=== PATIENT | female | born 1960 | race Caucasian/White ===

== ENCOUNTER → 2020-07-06 | Outpatient (CLI) | payer BC ==
[~2020-07-06] MED LIST: D31000TA2 PO; FISH1000 PO; FOLI1TAB11 PO; METH2.5T48 PO; PAXI10TA12 PO; PRED5PAK PO; VITA-243 PO; [UNRECOGNIZED DRUG - CODE] PO
== END ==
LOC: M LABSMTC 11:02
PROVIDERS: ATTEND Anesthesiology
DX: Z01.812 Encounter for preprocedural laboratory examination (principal); Z20.828 Contact with and (suspected) exposure to other viral communicable diseases
CPT/HCPCS: C9803; U0003

== ENCOUNTER 2020-07-11 12:58 | Day surgery (SDC) | payer OTHER ==
[~2020-07-11] VITALS: Ht 160 cm; Wt 66.6 kg
[~2020-07-11 12:58] MED LIST changes: +NS 1,000 ML IV ONE
[2020-07-11] MEDS ORDERED: propofoL 200 MG/20 ML VIAL As Ordered ONE (15:15)
[2020-07-11] MEDS ORDERED: LIDOCAINE 2% 100MG/5ML SDV (FOR ANES.) As Ordered ONE (15:16)
[2020-07-11 16:35] VITALS: BP 127/62
--- NOTE | 2020-07-12 11:39 | ROOR ---
Patient Name: Carson Birmingham Procedure Date: 07/11/2020 3:42 PM Date of : 1960 Age: 59 Room: [facility] Gender: Female Note Status: Finalized Procedure: Colonoscopy Indications: Screening for colorectal malignant neoplasm Providers: Darrick BRAN MD Referring MD: Daphnie Irene MD Requesting Provider: Medicines: Monitored Anesthesia Care Complications: No immediate complications. Procedure: Pre-Anesthesia Assessment: - The heart rate, respiratory rate, oxygen saturations, blood pressure, adequacy of pulmonary ventilation, and response to care were monitored throughout the procedure. The Colonoscope was introduced through the anus and advanced to the cecum, identified by appendiceal orifice and ileocecal valve. The colonoscopy was performed without difficulty. The patient tolerated the procedure well. The quality of the bowel preparation was good. Findings: The perianal and digital rectal examinations were normal. A 3 mm polyp was found in the appendiceal orifice. The polyp was sessile. The polyp was removed with a cold snare. Resection and retrieval were complete. A localized area of granular mucosa was found at the appendiceal orifice. The polyp was removed with a piecemeal technique using a cold snare. Resection and retrieval were complete. Internal hemorrhoids were found during retroflexion. The hemorrhoids were medium-sized. The exam was otherwise without abnormality on direct and retroflexion views. Impression: - One 3 mm polyp at the appendiceal orifice, removed with a cold snare. Resected and retrieved. - 8-10 mm granular mucosa at the appendiceal orifice. This was resected piecemeal with cold snare. Tissue retrieved. - Internal hemorrhoids. - The examination was otherwise normal on direct and retroflexion views. Recommendation: - Await pathology results. - Telephone endoscopist for pathology results in 2 weeks - If the pathology report indicates hyperplastic polyp, then repeat colonoscopy for surveillance in 3 years. - If the pathology report reveals adenomatous or serrated tissue, then repeat the colonoscopy for surveillance after piecemeal polypectomy in 1 year. Darrick Bran MD Darrick BRAN MD 07/11/2020 4:13:10 PM Electronically signed by Darrick BRAN MD Number of Addenda: 0 Note Initiated On: 07/11/2020 3:42 PM Estimated Blood Loss: Estimated blood loss: none.
== END 2020-07-11 16:38 | disposition home or self-care (01) ==
LOC: M OPP 12:58
PROVIDERS: ATTEND Internal Medicine Gastroenterology
DX: Z12.11 Encounter for screening for malignant neoplasm of colon (principal); K63.5 Polyp of colon; K63.89 Other specified diseases of intestine; K64.8 Other hemorrhoids; Z79.899 Other long term (current) drug therapy; Z88.0 Allergy status to penicillin; Z88.5 Allergy status to narcotic agent

== ENCOUNTER 2023-02-28 08:16 | Day surgery (SDC) | payer OTHER ==
[~2023-02-28] VITALS: Ht 160 cm; Wt 72.0 kg
[~2023-02-28 08:16] MED LIST changes: -D31000TA2 PO; +FAMO40TA3 PO; +OMEG10002 PO; +PARO20TA3 PO; -PAXI10TA12 PO; +PAXI10TA13 PO; +PRED5TA PO; +TURM500C PO; +VITA100093 PO
[2023-02-28] MEDS ORDERED: LIDOCAINE 2% 100MG/5ML SDV (FOR ANES.) As Ordered ONE (09:16)
[2023-02-28] MEDS ORDERED: propofoL 200 MG/20 ML VIAL As Ordered ONE ×2 (09:16→10:02)
[2023-02-28 10:36] VITALS: BP 108/53
== END 2023-02-28 10:47 | disposition home or self-care (01) ==
LOC: M OPP 08:16
PROVIDERS: ATTEND Internal Medicine Gastroenterology
DX: K63.5 Polyp of colon (principal); K64.8 Other hemorrhoids; K92.1 Melena; D50.9 Iron deficiency anemia, unspecified; Z79.52 Long term (current) use of systemic steroids; Z79.899 Other long term (current) drug therapy; Z88.0 Allergy status to penicillin; Z88.5 Allergy status to narcotic agent